=== PATIENT | female | born 1975 | race Caucasian/White ===

== ENCOUNTER 2017-04-11 14:35 | Emergency (ER) | payer OTHER ==
[~2017-04-11] VITALS: Ht 190.5 cm; Wt 133.8 kg
[~2017-04-11 14:35] MED LIST: ALLEGRA180 MG PO; ATIVAN1 M1 PO; ATIVAN1 MG PO; AVPAK LEVETIRA PO; BACTRIM DS 8001 TA1 PO; BUSPAR 10MG TAB10 MG PO; CENTRUM1 TAB PO; CIPRO 250MG TA250 MG PO; CIPRO 500MG TA500 MG PO; DEPAKOTE 500MG500 MG PO; DULOXETINE60 MG PO; ENDOCET 325 MG-1 TAB PO; ESTRACE 1MG TABL1 MG PO; ESTRADIOL1 M1 PO; ESTRATEST TABL1 EACH PO; FLEXERIL10 MG PO; FLOMAX0.4 MG PO; FUROSEMIDE 40MG40 M1 PO; FUROSEMIDE40 MG PO; GABAPENTIN 400400 M1 PO; HYDROCHLOROTH12.5 M1 PO; HYDROCODONE-APA1 TA1 PO; HYDROCODONE-APA1 TA2 PO; HYDROCODONE/APA1 TA8 PO; HYDROXYZINE PAM50 MG PO; LEVOTHYROXIN0.125 MG PO; LEVOTHYROXIN0.137 M1 PO; LEVOTHYROXIN0.175 MG PO; LORTAB 5/500 501 TAB PO; LORTAB 500 MG-11 TAB PO; LYRICA75 MG PO; METAMUCIL(SF)1 EACH PO; METHOCARBAMOL500 M1 PO; ONDANSETRON 4MG4 M1 PO; PERCOCET 5/3251 EACH PO; PERCOGESIC PO; PROZAC20 MG PO; PYRIDIUM 200MG200 MG PO; PYRIDIUM100 M2 PO; SOMA 350MG TAB350 MG PO; SYNTHROID0.2 MG PO; TRAZADONE HYDR100 MG PO; TRILEPTAL 150150 MG PO; ZOFRAN4 MG PO; ZYRTEC5 M2 PO
[2017-04-11 14:43] LABS: URINE BILIRUBIN - DIPSTICK NEGATIVE (NEG); URINE BLOOD 1+ (NEG)
--- NOTE | 2017-04-11 14:44 | Emergency Room Report ---
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 PT WAS BEING SEEN FOR UTI. 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 N Clinical Suspician of Infection? N Mental Status: 1 - Regular (Normal Baseline) Sepsis Risk:Low Sepsis Risk Have you (or family members/close friends) recently traveled outside the [place]? N If Yes, where/when: Have you had exposure to infectious disease within the past month? N TB? Other? Specify: Comment The patient arrives by ambulance, brought in from her doctor's office because of loss of consciousness, possible seizure. The patient says she was being seen by the doctor today for possible UTI. She has had bilateral flank pain and urinary frequency and nocturia for one week. She apparently was sitting on the examination table with nobody in the room, staff heard a thud and found her on the floor. It is unclear from EMS history whether staff actually witnessed the seizure. Blood sugar in route to the hospital was normal. The patient says because of her nocturia, she has not been sleeping for several days, causing her to "petit mall" which she describes as twitching of her face and eyes, difficulty with speech. She thinks this also has led to a seizure in the doctor' s office. She is on Depakote, Keppra, and Trileptal for seizures and says she is compliant. Dr. Agrawal also related to EMS personnel prior to their departure that "the patient has a psychiatric history". She says she had surgery a week ago, was supposed to have a hernia repaired, but she says that Dr. Calderón did not do anything during the surgery, "he just cut me". ALLERGIES Coded Allergies: NSAIDS (Non-Steroidal Anti-Inflamma (Mild, 03/21/17) acetaminophen (From ULTRACET) (Mild, 03/21/17) amitriptyline (Mild, 03/21/17) aspirin (Mild, 03/21/17) butorphanol (From STADOL) (Mild, 03/21/17) carbamazepine (From TEGRETOL) (Mild, 03/21/17) celecoxib (From CELEBREX) (Mild, 03/21/17) ketorolac (From TORADOL) (Mild, 03/21/17) meloxicam (Mild, 03/21/17) metoclopramide (From REGLAN) (Mild, 03/21/17) phenobarbital (Mild, 03/21/17) promethazine (From PHENERGAN) (Mild, 03/21/17) propoxyphene (From DARVOCET-N) (Mild, 03/21/17) tramadol (From ULTRACET) (Mild, 03/21/17) Home Medications Active Scripts SULFAMETHOXAZOLE W/TRIMETHOPRI (Bactrim Ds Tab) 1 TABLET PO BID #14 TAB Prov: 02/15/17 Reported Medications Divalproex Sodium (Depakote) 1,000 MG PO BID Methocarbamol 750 MG PO Q4HS #360 Gabapentin (Gabapentin 400MG Capsule) 400 MG PO QID #120 Estradiol 1 MG PO DAILY #30 Furosemide 80 MG PO MORNING #60 Furosemide (Furosemide 40MG) 40 MG PO EVENING Hydrochlorothiazide (Hydrochlorothiazide 12.5MG) 12.5 MG PO DAILY #30 Levothyroxine Sodium (Levothyroxine 0.175MG) 0.175 MG PO DAILY #30 Oxcarbazepine (TRILEPTAL 150MG TAB) 150 MG PO BID Levetiracetam (Avpak Levetiracetam) 750 MG PO BID #195 History Medical History General CAD? No Angina: Yes NC: No Hypertension? Yes Hyperlipidemia? Yes CHF? No DVT? No PE? No COPD? No Asthma? No Anemia? No GERD? No Gastric ulcers? No GI Bleed? No Hernia? No Thyroid Problems? Yes Hypothyroidism? Yes CVA? No Seizures? Yes Diabetes? No Insulin Dependent: No Insulin Pump: No Home FSBS? No Renal Insuffiency? No End Stage Renal Disease? No UTI? Yes Stones? Yes BPH? No GB Disease: Yes Nephritic Syndrome? No Asplenia? No Hepatitis? No Sickle Cell Disease? No Arthritis? Yes Migraines? No Cataracts? No Glaucoma? No MRSA? No HIV? No TB? No Anxiety? Yes Depression? Yes Cancer? Yes Site: SKIN More? Yes Additional hx: BIPOLAR Immunization Hx DT/Tetanus 08/25/16 Flu NEVER Pneumonia NEVER Surgical Hx Previous Surgery?Y Hysterect EXP LAP X 3/ADHESIONS LAP GEO WISDOM TEETH D & C ADHESIONS APPENDECTOMY BLOOD CLOT REMOVED FROM R. 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 Review of Systems All Other Systems Reviewed and Negative Cardiovascular syncope Physical Exam Vital Signs Vital Signs Date Time Temp Pulse Resp B/P Pulse O2 O2 Flow FiO2 Ox Delivery Rate 04/11 1702 98.0 78 20 139/87 99 04/11 1618 98.0 78 20 139/87 99 04/11 1437 98.2 84 16 98 General Appearance normal appearance, WD/WN Eye Exam - bilateral eye normal exam, bilateral eye PERRL, bilateral eye EOMI Comment Fluttering of eyelids intermittently Ear, Nose, Throat hearing grossly normal, normal ENT inspection Neck normal inspection, non-tender, supple, full range of motion Respiratory Status Yes: trachea midline, chest symmetrical, non tender chest. No: respiratory distress. Lung Sounds bilateral: normal breath sounds, lungs clear. 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 No Willie was queried for this patient? Yes Comment [id number] 22 rxs. last opiate rx 27 percocet on 03/21/17. Results/Orders Laboratory Tests 04/11/17 1455: Valproic Acid 88.9 04/11/17 1455: Sodium 140, Potassium 3.6, Chloride 102, Carbon Dioxide 28, BUN 6 L, Creatinine 0.9, Estimated Creat Clear 174, Estimated GFR (MDRD) 69, Glucose 83, Calcium 9.0 , Total Bilirubin 0.4, AST 12 L, ALT 14, Alkaline Phosphatase 68, Total Protein 7.9, Albumin 3.8, Globulin 4.1 H, Albumin/Globulin Ratio 0.9 L, WBC 5.3, RBC 5.13, Hgb 15.6, Hct 46.4, MCV 90.3, RDW 13.4, Plt Count 197, MPV 7.3 L, Gran % 50.3, Gran # 2.7, Lymphocytes % 37.7, Monocytes % 9.6 H, Eosinophils % 1.9, Basophils % 0.5, Lymphocytes # 2.0, Monocytes # 0.5, Eosinophils # 0.1, Basophils # 0.0, PUBS MCHC 33.6, MCH 30.3, Opiates Screen POSITIVE H, Urine Methadone Screen NEGATIVE, Barbiturates NEGATIVE, Phencyclidine Screen NEGATIVE, Amphetamines Screen NEGATIVE, Benzodiazepines Screen NEGATIVE, Cocaine Screen NEGATIVE, Marijuana (THC) Screen NEGATIVE 04/11/17 1440: Urine Color YELLOW, Urine Appearance CLEAR, Urine pH 6.0, Ur Specific [place] 1.020, Urine Protein 1+ H, Urine Ketones NEGATIVE, Urine Blood 1+ H, Urine Nitrate NEGATIVE, Urine Bilirubin NEGATIVE, Urine Urobilinogen 0.2, Ur Leukocyte Esterase NEGATIVE, Urine RBC 3-5, Urine WBC 3-5, Ur Squamous Epith Cells 10-20, Urine Bacteria 2+, Coarse Granular Casts OCC, Urine Glucose NEGATIVE Current Medication Orders Sig/Sena Start time Last Medication Dose Route Stop Time Status Admin Cephalexin 500 MG ONCE ONE 04/11 1645 DC 04/11 Monohydrate PO 04/11 1646 1644 Cephalexin 0 .STK-MED ONE 04/11 1644 DC Monohydrate PO Sodium Chloride 10 ML PRN PRN 04/11 1500 DCD IV 04/12 1449 Orders Procedure Date/time Status DRUG ABUSE SCREEN (TRIAGE) 04/11 1458 Complete ELECTROCARDIOGRAM REQUEST 04/11 144 Active IV SALINE LOCK 04/11 144 Active VALPROIC ACID (DEPAKENE) 04/11 144 Complete CBC WITH AUTO DIFF 04/11 144 Complete CHEM 12 PROFILE 04/11 144 Complete CULTURE, URINE 04/11 1440 Active URINALYSIS/COMPLETE 04/11 1439 Complete 12 LEAD EKG-JIGNA (INITIAL) 04/11 UNK Active CM/EKG CM/EKG Comments EKG interpreted by Oumar Stoddard MD: Rhythm: sinus Rate: 85 [place]: normal Ectopy: none Conduction: normal ST Segment Changes: none T Wave Changes: none Q Waves: V1 and V2 No evidence of acute ischemia or injury Prior electrocardiagrams reviewed. No significant change from prior tracings. Had minimal R waves in V1 and V2 in the past. Progress - 3:50 PM: Nurse reports that Dr. Agrawal called to report that the patient did have a witnessed seizure in the office. 4:27 PM: The patient is requesting a "pain shot and an antibiotic". She says she has had this before and this is what they always give her. I discussed results, urinalysis is not suggestive of UTI. I also discussed urine drug screen result. Patient tells me she took Percocet 3 days ago which she had been prescribed postoperatively. States she is now out of that medication. I also noted that last drug screen done here was positive for opiates as well. 4:36 PM: Case discussed with Dr. Agrawal. He states patient has a history of drug- seeking. He does not want her to have any pain medicine. May treat with antibiotics until culture results available Friday. She can follow-up at the office for culture results. 4:45 PM: The patient persistently requested a pain shot. I declined. She wanted Tylenol No. 3 for her headache, I also declined. The patient then pulled her own IV out and walked out of the emergency department without receiving discharge instructions. Departure Departure Disposition DC Home or Self Care(routine) Clinical Impression Primary Impression: Seizure disorder Secondary Impressions: Bilateral flank pain, Nocturia, Urinary frequency Condition STABLE Referrals Álvaro Agrawal MD (PCP/Family) Patient Instructions DI for Seizure Disorder -- Adult Additional Instructions Call Dr. Agrawal's his office on Friday for culture results. Additional instructions for SEIZURE OR LOSS OF CONSCIOUSNESS/POSSIBLE SEIZURE: NO DRIVING, BIKE RIDING, SWIMMING, TUB BATHING, LADDERS UNTIL CLEARED BY DOCTOR. RETURN IF SEIZURE RECURS. NO ALCOHOL OR STREET DRUGS. See your physician as soon as possible for follow-up. Return to the emergency department if seizure recurs. Prescriptions Current Visit Scripts Cephalexin (Keflex 500MG) 500 MG PO QID #40 [facility] Critical Care Critical Care No at [id number]
[2017-04-11 15:05] LABS: HEMOGLOBIN 15.6 g/dL (12.2-16.2); LYMPH % 37.7 % (10-50.0)
[2017-04-11 16:09] LABS: AMPHETAMINES/METAMPHETAMINES NEGATIVE ng/mL (<1000)
[2017-04-11] MEDS ORDERED: KEFLEX500 M1 PO (16:42)
[2017-04-11 17:02] VITALS: BP 139/87
== END 2017-04-11 17:04 | disposition home or self-care (01) ==
LOC: ER 14:35
PROVIDERS: Emergency Medicine
DX: G40.909 Epilepsy, unspecified, not intractable, without status epilepticus (principal); R10.9 Unspecified abdominal pain; R35.1 Nocturia; R35.0 Frequency of micturition; F17.210 Nicotine dependence, cigarettes, uncomplicated; E03.9 Hypothyroidism, unspecified; I10 Essential (primary) hypertension; E78.5 Hyperlipidemia, unspecified; Z79.82 Long term (current) use of aspirin; Z85.828 Personal history of other malignant neoplasm of skin; Z79.1 Long term (current) use of non-steroidal anti-inflammatories (NSAID); Z79.891 Long term (current) use of opiate analgesic; Z79.899 Other long term (current) drug therapy

== ENCOUNTER → 2017-04-22 | Outpatient (CLI) | payer OTHER ==
[~2017-04-22] MED LIST changes: +KEFLEX500 M1 PO
[2017-04-22 14:58] LABS: HEMOGLOBIN 14.3 g/dL (12.2-16.2); LYMPH # 2.9 K/mm3 (0.7-4.5); LYMPH % 42.1 % (10-50.0)
[2017-04-22 18:48] LABS: BUN 8 mg/dL (7-18)
[2017-04-22 19:09] LABS: GFR (ESTIMATED) 69 ML/MIN (59-)
== END ==
LOC: LAB 14:41
PROVIDERS: Nurse Practitioner Family
DX: R10.84 Generalized abdominal pain (principal); R14.0 Abdominal distension (gaseous)

== ENCOUNTER → 2017-07-11 | Outpatient (CLI) | payer OTHER ==
--- NOTE | 2017-07-14 05:26 | RADIOLOGY REPORT PS360 ---
CT ABD PELVIS W/WO CONTRAST INDICATION: Generalized abdominal pain, incisional hernia ABD PAIN ORDERING PHYSICIAN: Tobin Lance MD PATIENT AGE: 42 years COMPARISON: 02/15/2017 TECHNIQUE: Axial images are obtained without and with contrast. Sagittal and coronal reformatted images are reviewed as well. FINDINGS: No acute finding the lung bases. There has been prior cholecystectomy. No biliary dilatation. The liver, spleen, adrenal glands, and pancreas have an unremarkable CT appearance. No renal calculi or hydronephrosis. No ureteral calculi. No intestinal obstruction or free air. There is mild amount retained colonic feces. Prior appendectomy and prior hysterectomy no pelvic mass or focal inflammatory change. No evidence of diverticulitis. There is a tiny umbilical hernia containing fat. There is protrusion of the ventral aspect of the lower abdominal wall inferior to the umbilicus but no gris herniation. No acute bony anomalies. IMPRESSION: 1. No acute abdominal or pelvic findings. 2. Postsurgical changes with mild protrusion of the central aspect of the lower abdominal wall. The abdominal wall however does appear intact without evidence of true hernia except for a small hernia at the umbilicus containing fat.
== END ==
LOC: RAD 09:45
DX: R10.84 Generalized abdominal pain (principal)
CPT/HCPCS: Q9967